=== PATIENT | male | born 1935 | race African-American/Black ===

== ENCOUNTER 2017-10-14 12:16 | Emergency (ER) | payer MEDICARE, OTHER ==
[~2017-10-14] VITALS: Ht 182.9 cm; Wt 78.2 kg
[~2017-10-14 12:16] MED LIST: ASPI81 PO; ATOR40TA28 PO
[2017-10-14] MEDS ORDERED: KETOROLAC TROMETHAMINE 30 MG/ML VIAL IM ONE (13:15)
[2017-10-14 14:37] VITALS: BP 140/78
== END 2017-10-14 14:56 | disposition home or self-care (01) ==
LOC: EMS 12:17
DX: S22.31XA Fracture of one rib, right side, initial encounter for closed fracture (principal); I10 Essential (primary) hypertension; Z79.82 Long term (current) use of aspirin; W01.0XXA Fall on same level from slipping, tripping and stumbling without subsequent striking against object, initial encounter; Y93.89 Activity, other specified; Y92.810 Car as the place of occurrence of the external cause; Y99.8 Other external cause status
CPT/HCPCS: 71101; 96372; 99284; G0238; J1885